=== PATIENT | male | born 1945 | race Hispanic/Latino ===

== ENCOUNTER 2019-01-12 08:51 | Outpatient (CLI) | payer MEDICARE | END 2019-01-12 08:52 | disposition home or self-care (01) | LOC: CARDIO 08:51 ==

== ENCOUNTER 2019-02-02 08:05 | Day surgery (SDC) | payer MEDICARE ==
[2019-01-26 17:33] VITALS: BMI 34.4
[2019-02-02] MEDS ORDERED: Midazolam 2 MG/2 ML VIAL ONE (09:37)
[2019-02-02] MEDS ORDERED: Propofol 10 mg/ml Inj (20 ML) ONE (09:37)
[2019-02-02] MEDS ORDERED: Sodium Chloride 0.9% 1,000 ML IV SCH (10:15)
[2019-02-02 10:36] VITALS: O2SAT 95
[2019-02-02 10:52] VITALS: PULSE 53
[2019-02-02 10:59] VITALS: BP 115/56; RESP 18; TEMP 98.1
== END 2019-02-02 12:20 | disposition home or self-care (01) ==
LOC: ENDO 08:05
PROVIDERS: ATTEND Specialist
DX: Z12.11 Encounter for screening for malignant neoplasm of colon (principal); D12.4 Benign neoplasm of descending colon; K57.30 Diverticulosis of large intestine without perforation or abscess without bleeding; K64.8 Other hemorrhoids
CPT/HCPCS: 45385; 88305; J2001; J2250; J2704; J3010; J7030; J7040